=== PATIENT | female | born 1950 | race Caucasian/White ===

== ENCOUNTER 2018-01-10 07:47 | Inpatient (IN) | payer MEDICARE, OTHER ==
[~2018-01-10] VITALS: Ht 162.6 cm; Wt 75.3 kg
[2018-01-10 04:00] VITALS: BP 99/37
[2018-01-10 10:00] VITALS: BP 99/56
--- NOTE | 2018-01-10 10:00 | NUR ---
RAMAKRISHNA/RN: Pt received from [facility] via [employer]. Breathing even and unlabored, on 3L/min via NC, non-productive cough and diminished lung sounds with rhonchi noted. Pt anxious, screaming "help, help," oriented to unit, able to follow commands, bilat lower ext paralysis noted. IV HL x2 R wrist #22 and R fa #20 flushed patent, 6th bag of 1L NS bolus currently infusing. Suprapubic cath noted with foul, juan francisco urine noted, per [place] [employer] LPN Avis suprapubic cath tube and bag replaced at ER. +3 pitting edema noted lower extremities. SR c BBB in 90's on tele monitor, SBP in 90-100's, afebrile. Dr Mora paged for orders.
[2018-01-10] MEDS ORDERED: SENN1TAB77 PO (10:08)
[2018-01-10] MEDS ORDERED: ALBU2.5V38 IH (10:08)
[2018-01-10] MEDS ORDERED: CARV3.122 PO (10:08)
[2018-01-10] MEDS ORDERED: CALC-261 PO (10:08)
[2018-01-10] MEDS ORDERED: HEPA50008 SQ (10:08)
[2018-01-10] MEDS ORDERED: BACL10TA PO (10:08)
[2018-01-10] MEDS ORDERED: FLUT16SP16 BNOSTRILS (10:08)
[2018-01-10] MEDS ORDERED: MULT-447 PO (10:08)
[2018-01-10] MEDS ORDERED: CLON0.1T PO (10:08)
[2018-01-10] MEDS ORDERED: CYAN100T3 PO (10:08)
[2018-01-10] MEDS ORDERED: ALLA266C2 TP (10:08)
[2018-01-10] MEDS ORDERED: CALC-343 PO (10:08)
[2018-01-10] MEDS ORDERED: TAMO20TA4 PO (10:08)
[2018-01-10] MEDS ORDERED: BISA5TAB10 PO (10:08)
[2018-01-10] MEDS ORDERED: GUAI100S11 PO (10:08)
[2018-01-10] MEDS ORDERED: ACET-2605 PO (10:08)
[2018-01-10] MEDS ORDERED: OLOP5DRO EACHEYE (10:08)
[2018-01-10] MEDS ORDERED: ACID1TAB12 PO (10:08)
[2018-01-10] MEDS ORDERED: CHOL100044 PO (10:08)
[2018-01-10] MEDS ORDERED: FERR325T23 PO (10:08)
[2018-01-10] MEDS ORDERED: AMIN30LI4 PO (10:08)
[2018-01-10] MEDS ORDERED: ONDA4TAB5 PO (10:09)
[2018-01-10] MEDS ORDERED: TRAZ-182 PO (10:09)
[2018-01-10] MEDS ORDERED: ZINC220C8 PO (10:09)
[2018-01-10] MEDS ORDERED: TRAM50TA2 PO (10:09)
[2018-01-10] MEDS ORDERED: ASCO500T9 PO (10:09)
[2018-01-10 10:30] VITALS: BP 102/52
--- NOTE | 2018-01-10 10:30 | NUR ---
RAMAKRISHNA/RN: Received call back from Dr Mora, per MD, complete infusion of IV NS bolus from [facility]. Carried out. Completed infusion at 1025.
[2018-01-10] MEDS ORDERED: Z GUARD REMEDY 2 OZ OINT TP PRN (11:30)
[2018-01-10] MEDS ORDERED: ENOXAPARIN SODIUM 40 MG/0.4 ML DISP.SYRIN SQ SCH (11:30)
[2018-01-10] MEDS ORDERED: MAGNESIUM HYDROXIDE 30 ML UDC PO PRN (11:30)
[2018-01-10] MEDS ORDERED: MAG HYDROX/AL HYDROX/SIMETH 30 ML UDC PO PRN (11:30)
[2018-01-10] MEDS ORDERED: ONDANSETRON HCL/PF 4 MG/2 ML VIAL IVP PRN (11:30)
[2018-01-10 12:00] VITALS: BP_SYST 107; BP_DIAS 54; BP_DIAS 58
[2018-01-10] MEDS ORDERED: IV NS 0.9% 1,000 ML BAG IV ONE (12:00)
[2018-01-10] MEDS ORDERED: MEROPENEM 1 G in IV NS 0.9% 100 ML IV ONE (12:00)
[2018-01-10] MEDS: VANCOMYCIN 1 GM in IV D5W 250 ML IV ONE ×2 (12:26→12:44)
[2018-01-10] MEDS ORDERED: CLONIDINE HCL 0.1 MG TABLET PO PRN (12:30)
[2018-01-10] MEDS ORDERED: ALBUTEROL FS 2.5 MG/3 ML VIAL.NEB IH PRN (12:30)
[2018-01-10] MEDS ORDERED: MISCELLANEOUS MED 1 EA EA PO PRN (12:30)
[2018-01-10] MEDS ORDERED: BISACODYL (5 MG) 5 MG TABLET.DR PO PRN (12:30)
[2018-01-10] MEDS ORDERED: TRAMADOL HCL 50 MG TABLET PO PRN (12:30)
--- NOTE | 2018-01-10 12:30 | NUR ---
TELE/RN: Leah Baker, SECRETARY at bedside. Updated on pt status. Informed that suprapubic cath bag and tubing replaced at [place], labs discussed, home meds reviewed. Clarified 1L NS bolus - per SECRETARY, infuse additional 1L bolus, ok for pt total 7L NS.
[2018-01-10] MEDS ORDERED: FEE PK DOSING 1 MIN EA MC ONE (12:57)
[2018-01-10] MEDS ORDERED: CALCIUM CARBONATE 500 MG TAB.CHEW PO PRN (13:00)
[2018-01-10] MEDS ORDERED: IMIPENEM/CILASTATIN 500 MG in IV NS 0.9% 100 ML IV SCH (13:00)
[2018-01-10] MEDS ORDERED: IMIPENEM/CILASTATIN 250 MG in IV NS 0.9% 50 ML IV SCH (13:00)
--- NOTE | 2018-01-10 13:00 | NUR ---
TELE/RN: Son at bedside, updated. Pt able to tolerate PO meds with water. Will reassess effectiveness of pain management per protocol.
[2018-01-10 13:01] LABS: HEMATOCRIT 26 % (33-45); HEMOGLOBIN 8.7 g/dL (11.5-14.8); LYMPHOCYTES # (AUTO) 1.1 /CMM (0.8-4.8); LYMPHOCYTES % (AUTO) 2.7 % (20.0-44.0); MEAN CORPUSCULAR HGB CONC 34 g/dl (31.0-36.0); MEAN CORPUSCULAR VOLUME 93 fL (82-100); MONOCYTES # (AUTO) 1.5 /CMM (0.1-1.30); MONOCYTES % (AUTO) 3.7 % (2.0-12.0); NEUTROPHILS # (AUTO) 37.3 /CMM (1.8-8.9); NEUTROPHILS % (AUTO) 93.6 % (43.0-81.0); PLATELET COUNT (AUTO) 198 /CMM (150-450); RDW COEFFICIENT OF VARIATION 15.9 (11.5-15.0); RED BLOOD CELL COUNT(AUTO) 2.79 MIL/uL (4.0-5.2)
[2018-01-10 13:10] LABS: APPEARANCE,URINE SL CLOUDY (CLEAR); BILIRUBIN,URINE NEGATIVE (NEGATIVE); BLOOD, URINE 1+ Ery/uL (NEGATIVE); COLOR,URINE YELLOW (YELLOW); KETONES,URINE NEGATIVE (NEGATIVE); LEUKOCYTE ESTERASE ,URINE 3+ (NEGATIVE); NITRITE, URINE POSITIVE (NEGATIVE); PROTEIN,URINE 1+ mg/dl (NEGATIVE); UGLUCOSE NEGATIVE (NEGATIVE); UROBILINOGEN,URINE 0.2 EU/dL (0.2)
[2018-01-10] MEDS: BACLOFEN (10 MG) 10 MG TABLET PO SCH ×2 (13:11→17:03)
[2018-01-10] MEDS: HYDROCODONE/APAP 5/325MG 1 EACH TABLET PO PRN (13:12)
[2018-01-10 13:14] LABS: CALCIUM, SERUM 7.1 mg/dL (8.5-10.1); PHOSPHORUS 3.1 mg/dL (2.5-4.9); POTASSIUM 3.8 mmol/L (3.5-5.1); WHITE BLOOD COUNT (AUTO) 39.9 K/uL (4.3-11.0)
[2018-01-10 13:16] LABS: MAGNESIUM 1.1 mg/dL (1.8-2.4)
[2018-01-10 13:18] LABS: BACTERIA,URINE Few /HPF (None Seen); SQUAMOUS EPITHELIAL CELL,UR Few /HPF (None Seen); WBC,URINE 21-50 /HPF (0-3)
[2018-01-10 13:27] LABS: BAND % (MANUAL) 6 % (0.0-5.0); LYMPHOCYTES % (MANUAL) 3 % (16-48); MONOCYTES % (MANUAL) 5 % (0-11.0); NEUTROPHILS % (MANUAL) 86 (42-76)
[2018-01-10] MEDS: Magnesium 1GM/D5W 100ML PREMIX 100 ML IV SCH ×4 (13:31→17:03)
[2018-01-10] MEDS: OLOPATADINE HCL 0.1% OPHTH BOTTLE EACHEYE SCH (15:40)
[2018-01-10 16:00] VITALS: BP 99/37
[2018-01-10] MEDS: CARVEDILOL 3.125 MG TABLET PO SCH (17:00)
--- NOTE | 2018-01-10 17:00 | NUR ---
TELE/RN: PO meds crushed, mixed with apple sauce. Pt refuses to eat dinner aside from apple sauce. Tolerated well. Aspiration precautions in place.
[2018-01-10] MEDS: ACIDOPHILUS/BULGARICUS 1 EACH TAB.CHEW PO SCH (17:03)
[2018-01-10] MEDS: SENNOSIDES/DOCUSATE SODIUM 1 TAB TABLET PO SCH (17:04)
[2018-01-10] MEDS: FERROUS SULFATE (325 MG) 325 MG/TAB TABLET PO SCH (17:04)
[2018-01-10] MEDS: PROSOURCE / PROSTAT (PYXIS) 30 ML UDC PO SCH (17:04)
[2018-01-10] MEDS: CALCIUM CARB 250MG /VITAMIN D 1 UDTAB PO SCH (17:04)
[2018-01-10] MEDS: FLUTICASONE PROPIONATE 16 GM BOTTLE NS SCH (18:43)
--- NOTE | 2018-01-10 19:18 | NUR ---
TELE/RN: Pt awake, confused, agitated. Requires frequent reorientation. IVF infusing well. Safety measures in place. Bedside report given to pm RN for JANEE.
--- NOTE | 2018-01-10 19:20 | NUR ---
CART PUSHER INITIAL NOTE RECIEVED PATIENT RESTING COMFORTABLY WITH HOB ELEVATED. PATIENT IS ABLE TO MAKE NEEDS KNOWN, DENIES ANY CARDIAC OR RESPIRATORY DISTRESS, AOX2, NO PAIN REPORTED. TELE TACHY 104. SUPRAPUBIC F/C DRAINING SARK YELLOW URINE. RFA #20G PATENT FLUSHING WELL INFUSING NS @100CC/HR. SAFETY MAINTAINED AT ALL TIMES, BED IN LOW LOCKED POSITION, CALL LIGHT WITHIN REACH, WILL CONTINUE TO MONITOR FOR ANY CHANGES IN CONDITION.
[2018-01-10 20:00] VITALS: BP 119/55
[2018-01-10] MEDS: ACETAMINOPHEN 325 MG TABLET PO PRN (21:20)
[2018-01-10] MEDS: TRAZODONE 50 MG TABLET PO SCH (21:20)
[2018-01-10] MEDS: GUAIFENESIN 300 MG/15 ML UDC PO PRN (21:22)
--- NOTE | 2018-01-10 22:15 | NUR ---
PT PLACED ON BIPAP PER PHYSICIAN ORDER. BIPAP AT NOC. SETTINGS SET PER PT COMFORT. SETTINGS S/T 12 07/24 30%. SETTINGS TOLERATED AT THIS TIME Addendum: 01/10/18 at 2217 by SANJEEV PEREZ RT Amended: Links added.
--- NOTE | 2018-01-10 23:31 | NUR ---
per rn pt removed bipap and refusing at this time. pt placed on n/c 2l by rn Addendum: 01/11/18 at 0102 by SANJEEV PEREZ RT Amended: Links added.
[2018-01-11] VITALS: BP 135/93
[2018-01-11] MEDS: ZOLPIDEM TARTRATE 5 MG TABLET PO PRN (00:06)
[2018-01-11] MEDS: HYDROCODONE/APAP 5/325MG 1 EACH TABLET PO PRN (00:07)
[2018-01-11] MEDS ORDERED: MEROPENEM 500 MG VIAL IV ONE (00:50)
[2018-01-11] MEDS: MEROPENEM 500 MG in IV NS 0.9% 50 ML IV SCH ×2 (00:56→12:11)
[2018-01-11] MEDS: IV NS 0.9% 1,000 ML IV PRN ×2 (02:24→16:42)
--- NOTE | 2018-01-11 03:52 | NUR ---
HAIR STYLIST NOTES CALL FROM [facility], DR. PAZ, TO REPORT THAT BLOOD CULTURE SHOWS GRAM NEGATIVE RODS. WILL ENDORSE TO AM NURSE FOR JANEE.
[2018-01-11 04:00] VITALS: BP 108/40
[2018-01-11 06:26] LABS: HEMATOCRIT 28 % (33-45); HEMOGLOBIN 9.4 g/dL (11.5-14.8); LYMPHOCYTES # (AUTO) 0.3 /CMM (0.8-4.8); MEAN CORPUSCULAR HGB CONC 33 g/dl (31.0-36.0); MEAN CORPUSCULAR VOLUME 94 fL (82-100); MONOCYTES # (AUTO) 0.1 /CMM (0.1-1.30); MONOCYTES % (AUTO) 0.4 % (2.0-12.0); NEUTROPHILS # (AUTO) 29.9 /CMM (1.8-8.9); NEUTROPHILS % (AUTO) 98.6 % (43.0-81.0); PLATELET COUNT (AUTO) 147 /CMM (150-450); RDW COEFFICIENT OF VARIATION 15.9 (11.5-15.0)
--- NOTE | 2018-01-11 06:32 | NUR ---
GLOBAL CHIEF EXPERIENCE OFFICER CLOSING NOTE NO ACUTE CHANGES DURING SHIFT, PATIENT IS AOX2 AT BASELINE, SPEECH CLEAR, REFUSED BIPAP, ON 2L O2 VIA NC. NO PAIN NOTED, RESTING COMFORTABLY IN BED. WILL ENDORSE TO AM NURSE FOR CONTINUITY OF CARE.
[2018-01-11 06:43] LABS: WHITE BLOOD COUNT (AUTO) 30.3 K/uL (4.3-11.0)
[2018-01-11 06:45] LABS: CALCIUM, SERUM 7.6 mg/dL (8.5-10.1); CREATININE 2.1 mg/dL (0.6-1.3); MAGNESIUM 2.4 mg/dL (1.8-2.4); PHOSPHORUS 2.3 mg/dL (2.5-4.9); POTASSIUM 3.4 mmol/L (3.5-5.1)
--- NOTE | 2018-01-11 06:46 | NUR ---
ACCOUNT SUPPORT REP NOTE RECEIVED CALL FOR CRITICAL LAB WBC 30.3 TRENDING DOWN, WILL CONTINUE TO FOLLOW PROTOCOL.
[2018-01-11 08:00] VITALS: BP 111/40
[2018-01-11] MEDS ORDERED: VANCOMYCIN 0.75 GM in IV D5W 250 ML IV SCH (08:00)
--- NOTE | 2018-01-11 08:11 | NUR ---
WATER FILTRATION TECHNICIAN NOTE RECEIVED PATIENT RESTING COMFORTABLY PATIENT IS ABLE TO MAKE NEEDS KNOWN, AOX2, NO PAIN REPORTED. TELE TACHY 114. SUPRAPUBIC F/C DRAINING YELLOW URINE. RFA #20G PATENT FLUSHING WELL INFUSING NS @100CC/HR. SAFETY MAINTAINED AT ALL TIMES, BED IN LOW LOCKED POSITION, CALL LIGHT WITHIN REACH, WILL CONTINUE TO MONITOR FOR ANY CHANGES IN CONDITION.NO SOB NOTED , SAT ON 2L 100%
[2018-01-11 08:19] LABS: BAND % (MANUAL) 3 % (0.0-5.0)
[2018-01-11 08:20] LABS: LYMPHOCYTES % (MANUAL) 2 % (16-48); NEUTROPHILS % (MANUAL) 95 (42-76)
[2018-01-11] MEDS: PROSOURCE / PROSTAT (PYXIS) 30 ML UDC PO SCH ×2 (09:00→16:37)
[2018-01-11] MEDS: CYANOCOBALAMIN 100 MCG TABLET PO SCH (09:00)
[2018-01-11] MEDS: BACLOFEN (10 MG) 10 MG TABLET PO SCH ×3 (09:00→16:37)
[2018-01-11] MEDS: FERROUS SULFATE (325 MG) 325 MG/TAB TABLET PO SCH ×2 (09:00→16:37)
[2018-01-11] MEDS: MULTIVIT, IRON, MIN NO. 8, FA 1 TAB PO SCH (09:00)
[2018-01-11] MEDS: CHOLECALCIFEROL 1,000 UNIT TABLET (VIT D3) PO SCH (09:00)
[2018-01-11] MEDS: CARVEDILOL 3.125 MG TABLET PO SCH (09:00)
[2018-01-11] MEDS: CALCIUM CARB 250MG /VITAMIN D 1 UDTAB PO SCH ×2 (09:00→16:37)
[2018-01-11] MEDS: ACIDOPHILUS/BULGARICUS 1 EACH TAB.CHEW PO SCH ×2 (09:00→16:37)
[2018-01-11] MEDS: ASCORBIC ACID 500 MG TABLET PO SCH (09:00)
[2018-01-11] MEDS: ZINC SULFATE 220 MG CAPSULE PO SCH (09:00)
[2018-01-11] MEDS: SENNOSIDES/DOCUSATE SODIUM 1 TAB TABLET PO SCH ×2 (09:00→16:37)
[2018-01-11] MEDS: TAMOXIFEN CITRATE 10 MG TABLET PO SCH (09:00)
[2018-01-11] MEDS: FLUTICASONE PROPIONATE 16 GM BOTTLE NS SCH ×2 (09:58→16:37)
[2018-01-11] MEDS: OLOPATADINE HCL 0.1% OPHTH BOTTLE EACHEYE SCH (09:58)
[2018-01-11] MEDS: Z GUARD REMEDY 2 OZ OINT TP SCH (09:59)
[2018-01-11] MEDS ORDERED: POTASSIUM CHLORIDE 10 MEQ TABLET.SA PO ONE (10:00)
--- NOTE | 2018-01-11 10:00 | NUR ---
PODOPEDIATRICIAN NOTE PATIENT REFUSED ALL PO MEDS, SLEEPING BUT EASILY ABUSABLE ON IVF ORDERED, REFUSED TO HAVE BREAKFAST , VERY CONFUSED WHEN WAKE UP
[2018-01-11] MEDS: HEPARIN SODIUM, PORCINE 5000 UNITS/1 ML VIAL SQ SCH (10:02)
[2018-01-11 12:00] VITALS: BP 81/33
[2018-01-11] MEDS ORDERED: K PHOS NEUTRAL 250 MG TABLET PO ONE (12:00)
--- NOTE | 2018-01-11 12:00 | NUR ---
COMMUNICATIONS TOWER CLIMBER NOTE NOTE THAT PATIENT HAS DIFFICULTY TO SWALLOW ,WILL INFORM MD ,REFUSED LUNCH
--- NOTE | 2018-01-11 12:22 | NUR ---
FIRE CAPTAIN MARINE NOTE [id number] MAURO WITH ORDER BOLUS 1L , ALSO PER [facility] REPORT PLACED ON ,MRSA NARES ISOLATION Addendum: 01/11/18 at 1259 by HANNA HOLLAND RN BP 80/40 BOLUS 1L NS ADMINISTERED
[2018-01-11] MEDS ORDERED: IV NS 0.9% 1,000 ML IV PRN (12:30)
--- NOTE | 2018-01-11 13:00 | NUR ---
TURBINE SUBASSEMBLER NOTE DR MAURO AWARE THAT URINE OUTPUT 180 ML AT THIS TIME WITH BHARATI COLOR
--- NOTE | 2018-01-11 14:38 | NUR ---
CAR CONDITIONER NOTE BP 104/58 AFTER BOLUS WAS GIVEN ,[employer]CI MATRASS APPLIED
--- NOTE | 2018-01-11 14:55 | NUR ---
MS RN NOTE RT AT BEDSIDE BREATHING TX DONE DUE TO PATENT C\O CANT BREATH WELL ORAL SUCTION DONE BY RT ,WILL MONITOR CLOSELY
[2018-01-11 16:00] VITALS: BP 129/53
--- NOTE | 2018-01-11 16:06 | NUR ---
MS RN NOTE SPOKE WITH LOLI RN SUBEDITOR NOTIFIED THAT PATENT WITH CHEST CONGESTION NOTED , ALSO HAS DIFFICULTY TO SWALLOW AND REFUSED PO MEDS IN AM ,ORDERED SWALLOW EVAL AND CHEST X RAY WILL F\U
--- NOTE | 2018-01-11 17:22 | NUR ---
MS RN NOTE SPOKE WITH JONA BONE ELEVATOR REPAIRER ELEVATOR REPAIRER NOTIFIED CHEST XRAY RESULT NO NEW ORDER GIVEN NOTIFIED THAT ON IVF AT 100 ML PER HOUR
--- NOTE | 2018-01-11 18:11 | NUR ---
MS RN NOTE PATIENT HAS VERY POOR APPETITE ,ATE 10% OF FOOD , AT RISK FOR ASPIRATION, WILL CONT TO MONITOR CLOSELY
--- NOTE | 2018-01-11 18:39 | NUR ---
MS RN NOTE SPOKE WITH ROLANDO RN LIMEHOUSE WORKER AWARE THAT CHEST XRAT WITH SMALL LT EFFUSION, STATED THAT WILL CHECK TOMORROW NEW CHEST XRAY ALSO AWARE THAT HR 115 ON IVF NS AT 100 ML PER HOUR ,AWARE THAT URINE OUTPUT 200 AT THIS TIME , ALSO AWARE THAT PER [facility] REPORT PATIENT HAS GRAM _ STEWART ON IV ATB, NOTIFIED THAT EARLIER IN AM WAS TOO SLEEPY AND UNABLE TO TAKE PO MEDS WELL , NORCO PO WAS GIVEN LAST NIGHT
[2018-01-11 20:00] VITALS: BP 99/48
[2018-01-11] MEDS: TRAZODONE 50 MG TABLET PO SCH (21:12)
[2018-01-11] MEDS: MUPIROCIN OINT 2% 22 GM TUBE SCH (21:14)
[2018-01-12] VITALS (7 sets, daily range): BP systolic 101–154; BP diastolic 57–104
[2018-01-12] MEDS: MEROPENEM 500 MG in IV NS 0.9% 50 ML IV SCH ×2 (00:53→12:05)
[2018-01-12] MEDS: IV NS 0.9% 1,000 ML IV PRN ×2 (00:58→09:25)
[2018-01-12] MEDS: ACETAMINOPHEN 325 MG TABLET PO PRN (02:10)
[2018-01-12] MEDS: GUAIFENESIN 300 MG/15 ML UDC PO PRN (02:10)
[2018-01-12] MEDS: ZOLPIDEM TARTRATE 5 MG TABLET PO PRN (02:46)
[2018-01-12 07:00] LABS: EOSINOPHILS % (AUTO) 0.3 % (0.0-6.0); HEMATOCRIT 28 % (33-45); HEMOGLOBIN 9.4 g/dL (11.5-14.8); LYMPHOCYTES # (AUTO) 1.1 /CMM (0.8-4.8); LYMPHOCYTES % (AUTO) 3.8 % (20.0-44.0); MEAN CORPUSCULAR HGB CONC 33 g/dl (31.0-36.0); MEAN CORPUSCULAR VOLUME 93 fL (82-100); MONOCYTES # (AUTO) 0.9 /CMM (0.1-1.30); MONOCYTES % (AUTO) 2.9 % (2.0-12.0); NEUTROPHILS # (AUTO) 27.6 /CMM (1.8-8.9); PLATELET COUNT (AUTO) 120 /CMM (150-450); RDW COEFFICIENT OF VARIATION 16.5 (11.5-15.0); RED BLOOD CELL COUNT(AUTO) 3.04 MIL/uL (4.0-5.2); WHITE BLOOD COUNT (AUTO) 29.6 K/uL (4.3-11.0)
[2018-01-12 07:15] LABS: CALCIUM, SERUM 7.6 mg/dL (8.5-10.1); MAGNESIUM 2.1 mg/dL (1.8-2.4); PHOSPHORUS 2.3 mg/dL (2.5-4.9); POTASSIUM 3.4 mmol/L (3.5-5.1)
--- NOTE | 2018-01-12 07:40 | NUR ---
MS/RN OPENING NOTE PATIENT IN BED IN STABLE CONDITION. A/O X 1-2 WITH EPISODES OF CONFUSION AND FORGETFULNESS. NO SIGNS OF ACUTE DISTRESS. NO COMPLAIN OF PAIN OR DISCOMFORT. ON CONTACT ISOLATION FOR MRSA NARES. TOLERATING WELL. ALL NEEDS ATTENDED TO. CALL LIGHT WITHIN REACH. WILL CONTINUE TO MONITOR TO ENSURE SAFETY.
[2018-01-12 07:45] LABS: IRON, SERUM 7 ug/dl (50-175); TOTAL IRON BINDING CAPACITY 70 ug/dl (250-450)
--- NOTE | 2018-01-12 08:54 | NUR ---
MS/RN HEPARIN NON ADMIN HEPARIN NON ADMIN DUE TO LOW PLATELET COUNT 120L.
[2018-01-12] MEDS: HEPARIN SODIUM, PORCINE 5000 UNITS/1 ML VIAL SQ SCH (08:55)
[2018-01-12] MEDS: PROSOURCE / PROSTAT (PYXIS) 30 ML UDC PO SCH ×2 (09:13→17:00)
[2018-01-12] MEDS: Z GUARD REMEDY 2 OZ OINT TP SCH (09:13)
[2018-01-12] MEDS: SENNOSIDES/DOCUSATE SODIUM 1 TAB TABLET PO SCH ×2 (09:14→17:00)
[2018-01-12] MEDS: MUPIROCIN OINT 2% 22 GM TUBE SCH ×2 (09:14→21:15)
[2018-01-12] MEDS: MULTIVIT, IRON, MIN NO. 8, FA 1 TAB PO SCH (09:14)
[2018-01-12] MEDS: ZINC SULFATE 220 MG CAPSULE PO SCH (09:14)
[2018-01-12] MEDS: BACLOFEN (10 MG) 10 MG TABLET PO SCH ×3 (09:14→17:00)
[2018-01-12] MEDS: ACIDOPHILUS/BULGARICUS 1 EACH TAB.CHEW PO SCH ×2 (09:14→17:00)
[2018-01-12] MEDS: TAMOXIFEN CITRATE 10 MG TABLET PO SCH (09:14)
[2018-01-12] MEDS: CHOLECALCIFEROL 1,000 UNIT TABLET (VIT D3) PO SCH (09:14)
[2018-01-12] MEDS: CYANOCOBALAMIN 100 MCG TABLET PO SCH (09:15)
[2018-01-12] MEDS: FERROUS SULFATE (325 MG) 325 MG/TAB TABLET PO SCH ×2 (09:15→17:00)
[2018-01-12] MEDS: ASCORBIC ACID 500 MG TABLET PO SCH (09:15)
[2018-01-12] MEDS: CALCIUM CARB 250MG /VITAMIN D 1 UDTAB PO SCH ×2 (09:15→17:00)
[2018-01-12 09:18] LABS: BAND % (MANUAL) 7 % (0.0-5.0); LYMPHOCYTES % (MANUAL) 6 % (16-48); NEUTROPHILS % (MANUAL) 84 (42-76)
[2018-01-12 09:19] LABS: EOSINOPHILS % (MANUAL) 1 % (0-4); MONOCYTES % (MANUAL) 2 % (0-11.0)
[2018-01-12] MEDS: VANCOMYCIN 1 GM in IV D5W 250 ML IV SCH (10:40)
[2018-01-12] MEDS: FLUTICASONE PROPIONATE 16 GM BOTTLE NS SCH ×2 (10:40→17:00)
[2018-01-12] MEDS: OLOPATADINE HCL 0.1% OPHTH BOTTLE EACHEYE SCH (10:41)
[2018-01-12] MEDS ORDERED: Potassium Chloride 10 MEQ in IV D5W 50 ML IV ONE (12:00)
[2018-01-12] MEDS ORDERED: POTASSIUM CHLORIDE 10 MEQ TABLET.SA PO ONE (12:00)
--- NOTE | 2018-01-12 12:00 | NUR ---
WOUND CARE CONSULT: PT FOLLOWED BY PLASTIC SURGERY TEAM FOR WOUND/SKIN CARE. DEFER TO SURGICAL TEAM FOR WOUND TREATMENT PLAN. PT ON FIRST STEP MATTRESS. ALL SKIN PROTECTION AND PRESSURE ULCER PREVENTION MEASURES IN PLACE AND DISCUSSED WITH NURSING STAFF. CURRENT FERNANDO SCORE IS 12. MD IN AGREEMENT WITH PLAN OF CARE.
[2018-01-12] MEDS ORDERED: K PHOS NEUTRAL 250 MG TABLET PO ONE (12:30)
[2018-01-12] MEDS ORDERED: Sodium Phosphate 7.5 MMOL in IV D5W 100 ML IV ONE (13:00)
[2018-01-12] MEDS: CEFEPIME 1 GM in IV NS 0.9% 50 ML IV SCH (17:44)
--- NOTE | 2018-01-12 18:32 | NUR ---
MS/RN CLOSING NOTE PATIENT IN BED IN STABLE CONDITION. A/O X 1-2 WITH EPISODES OF CONFUSION AND FORGETFULNESS. NO SIGNS OF ACUTE DISTRESS. NO COMPLAIN OF PAIN OR DISCOMFORT. ALL NEEDS ATTENDED TO. CALL LIGHT WITHIN REACH. WILL ENDORSE TO NEXT SHIFT FOR CONTINUITY OF CARE.
[2018-01-12] MEDS ORDERED: CEFEPIME 1 GM VIAL IM SCH (21:00)
[2018-01-12] MEDS: TRAZODONE 50 MG TABLET PO SCH (21:15)
[2018-01-13] MEDS: MEROPENEM 500 MG in IV NS 0.9% 50 ML IV SCH ×2 (00:07→12:30)
[2018-01-13] MEDS: IV NS 0.9% 1,000 ML IV PRN ×2 (03:57→08:40)
[2018-01-13 04:00] VITALS: BP 124/78
--- NOTE | 2018-01-13 07:01 | NUR ---
RN NOTE PATIENT WAS TRANSFERRED TO MED SURG ROOM 203 FOR CONTINUATION OF CARE, REPORT WAS PROVIDED
--- NOTE | 2018-01-13 07:05 | NUR ---
MS RN NOTE: RECEIVED PATIENT FROM RAMAKRISHNA, NO ACUTE DISTRESS NOTED. WILL ENDORSE TO DAY NURSE TO CONTINUE WITH PLAN OF CARE.
--- NOTE | 2018-01-13 07:15 | NUR ---
MS RN NOTES PATIENT IN BED, A/O X1 WITH CONFUSION. ON 4L OXYGEN VIA NC, NO SOB. SUPRAPUBIC CATH INTACT, DRAINING TO GRAVITY, URINE CLEAR AND YELLOW, BAG OFF THE FLOOR. IVC IN LEFT HAND G22 PATENT AND INTACT, WILL INFUSE IVF NS AT 150ML/HR ORDERED. MAINTAIN FALL PRECAUTION, ON LOW AIR LOSS MATTRESS. CONTACT ISOLATION MRSA NARES OBSERVED. WILL CONT TO MONITOR.
[2018-01-13 08:00] VITALS: BP 141/59
[2018-01-13 08:02] LABS: BASOPHILS % (AUTO) 0.1 % (0.0-2.0); EOSINOPHILS % (AUTO) 0.2 % (0.0-6.0); HEMATOCRIT 29 % (33-45); HEMOGLOBIN 9.7 g/dL (11.5-14.8); LYMPHOCYTES # (AUTO) 1.1 /CMM (0.8-4.8); LYMPHOCYTES % (AUTO) 4.4 % (20.0-44.0); MEAN CORPUSCULAR HGB CONC 34 g/dl (31.0-36.0); MEAN CORPUSCULAR VOLUME 93 fL (82-100); MONOCYTES # (AUTO) 0.8 /CMM (0.1-1.30); NEUTROPHILS % (AUTO) 92.3 % (43.0-81.0); PLATELET COUNT (AUTO) 96 /CMM (150-450); RDW COEFFICIENT OF VARIATION 17.2 (11.5-15.0); RED BLOOD CELL COUNT(AUTO) 3.12 MIL/uL (4.0-5.2)
[2018-01-13 08:09] LABS: CALCIUM, SERUM 7.7 mg/dL (8.5-10.1); CREATININE 1.9 mg/dL (0.6-1.3); MAGNESIUM 1.9 mg/dL (1.8-2.4); POTASSIUM 3.4 mmol/L (3.5-5.1)
[2018-01-13] MEDS: OLOPATADINE HCL 0.1% OPHTH BOTTLE EACHEYE SCH (08:47)
[2018-01-13] MEDS: FLUTICASONE PROPIONATE 16 GM BOTTLE NS SCH ×2 (08:47→16:55)
[2018-01-13] MEDS: MUPIROCIN OINT 2% 22 GM TUBE SCH ×2 (08:48→21:27)
[2018-01-13] MEDS: ASCORBIC ACID 500 MG TABLET PO SCH (08:52)
[2018-01-13] MEDS: SENNOSIDES/DOCUSATE SODIUM 1 TAB TABLET PO SCH ×2 (08:53→17:13)
[2018-01-13] MEDS: CHOLECALCIFEROL 1,000 UNIT TABLET (VIT D3) PO SCH (08:53)
[2018-01-13] MEDS: CYANOCOBALAMIN 100 MCG TABLET PO SCH (08:53)
[2018-01-13] MEDS: TAMOXIFEN CITRATE 10 MG TABLET PO SCH (08:53)
[2018-01-13] MEDS: FERROUS SULFATE (325 MG) 325 MG/TAB TABLET PO SCH ×2 (08:53→17:13)
[2018-01-13] MEDS: ZINC SULFATE 220 MG CAPSULE PO SCH (08:53)
[2018-01-13] MEDS: CALCIUM CARB 250MG /VITAMIN D 1 UDTAB PO SCH ×2 (08:53→17:13)
[2018-01-13] MEDS: PROSOURCE / PROSTAT (PYXIS) 30 ML UDC PO SCH ×2 (08:54→17:13)
[2018-01-13] MEDS: ACIDOPHILUS/BULGARICUS 1 EACH TAB.CHEW PO SCH ×2 (08:59→17:13)
[2018-01-13] MEDS: BACLOFEN (10 MG) 10 MG TABLET PO SCH ×3 (09:00→17:47)
[2018-01-13] MEDS: MULTIVIT, IRON, MIN NO. 8, FA 1 TAB PO SCH (09:00)
[2018-01-13] MEDS: HEPARIN SODIUM, PORCINE 5000 UNITS/1 ML VIAL SQ SCH (09:36)
[2018-01-13] MEDS: Z GUARD REMEDY 2 OZ OINT TP SCH (09:37)
[2018-01-13] MEDS ORDERED: POTASSIUM CHLORIDE 10 MEQ TABLET.SA PO ONE (10:30)
[2018-01-13] MEDS: VANCOMYCIN 1 GM in IV D5W 250 ML IV SCH (10:59)
[2018-01-13 11:40] LABS: BAND % (MANUAL) 2 % (0.0-5.0); LYMPHOCYTES % (MANUAL) 5 % (16-48); NEUTROPHILS % (MANUAL) 93 (42-76)
[2018-01-13 16:00] VITALS: BP 133/61
[2018-01-13] MEDS: CEFEPIME 1 GM in IV NS 0.9% 50 ML IV SCH (16:50)
--- NOTE | 2018-01-13 18:28 | NUR ---
MS RN CLOSING NOTES PATIENT IS A/O X1 WITH CONFUSION. WEANING OXYGEN TOLERATED, CURRENTLY ON 2L OXYGEN VIA NC FROM 4L. SATING 100% ON 2L, TOLERATING WELL, NO SOB. AFEBRILE DURING THE SHIFT, DENIES PAIN. LOW POTASSIUM LEVEL TODAY, SUPPLEMENTED ORDERED. ON CONTACT ISOLATION MRSA NARES AND ESBL URINE, CONT ANTIBIOTIC ORDERED. MAINTAIN FALL PRECAUTION, ASPIRATION, AND CONTACT ISOLATION. FOR CT ABD/PELVIS WO ORDERED. WILL ENDORSE TO ONCOMING RN.
--- NOTE | 2018-01-13 19:30 | NUR ---
MS/RN OPENING NOTES PT AWAKE, ON 2L O2 VIA NC, BREATHING EVEN AND UNLABORED. NO SOB OR C/O OF PAIN AT THIS TIME. IV TO LEFT HAND PATENT AND INTACT. SUPRAPUBIC CATH IN PLACE AND DRAINING TO GRAVITY. PT FOR CT ABD/PELVIS WO CONTRAST. BED IN LOW/LOCKED POSITION WITH CALL LIGHT IN REACH. SIDE RAILSU PX2. WILL CONTINUE TO MONITOR
[2018-01-13 20:00] VITALS: BP 151/76
[2018-01-13] MEDS ORDERED: LEVOFLOXACIN 500 MG /D5W 100ML 500 MG in PREMIX 1 EA IV ONE (20:00)
[2018-01-13] MEDS: ALBUTEROL FS 2.5 MG/3 ML VIAL.NEB IH SCH (20:29)
[2018-01-13] MEDS: TRAZODONE 50 MG TABLET PO SCH (21:27)
[2018-01-14] MEDS: MEROPENEM 500 MG in IV NS 0.9% 50 ML IV SCH ×3 (00:12→23:44)
[2018-01-14] MEDS: ACETAMINOPHEN 325 MG TABLET PO PRN (00:30)
--- NOTE | 2018-01-14 00:37 | NUR ---
MS/RN NOTES PT C/O MILD RIB PAIN. ADMINISTERED PRN TYLENOL ORDERED. WILL MONITOR FOR EFFECTIVENESS
[2018-01-14] MEDS: ALBUTEROL FS 2.5 MG/3 ML VIAL.NEB IH SCH ×4 (01:25→19:53)
[2018-01-14 07:07] LABS: EOSINOPHILS % (AUTO) 1.3 % (0.0-6.0); HEMATOCRIT 28 % (33-45); HEMOGLOBIN 9.6 g/dL (11.5-14.8); LYMPHOCYTES # (AUTO) 1.5 /CMM (0.8-4.8); LYMPHOCYTES % (AUTO) 6.9 % (20.0-44.0); MEAN CORPUSCULAR HGB CONC 34 g/dl (31.0-36.0); MEAN CORPUSCULAR VOLUME 93 fL (82-100); MONOCYTES # (AUTO) 1.3 /CMM (0.1-1.30); MONOCYTES % (AUTO) 6.2 % (2.0-12.0); NEUTROPHILS # (AUTO) 18.2 /CMM (1.8-8.9); NEUTROPHILS % (AUTO) 85.6 % (43.0-81.0); PLATELET COUNT (AUTO) 87 /CMM (150-450); RDW COEFFICIENT OF VARIATION 17.2 (11.5-15.0); RED BLOOD CELL COUNT(AUTO) 3.06 MIL/uL (4.0-5.2); WHITE BLOOD COUNT (AUTO) 21.3 K/uL (4.3-11.0)
[2018-01-14 07:21] LABS: CALCIUM, SERUM 7.6 mg/dL (8.5-10.1); CREATININE 1.8 mg/dL (0.6-1.3); MAGNESIUM 1.8 mg/dL (1.8-2.4); PHOSPHORUS 2.5 mg/dL (2.5-4.9)
--- NOTE | 2018-01-14 07:50 | NUR ---
MS/RN CLOSING NOTES PT AWAKE, ON 2L O2 VIA NC, BREATHING EVEN AND UNLABORED. NO SOB OR C/O OF PAIN AT THIS TIME. IV TO LEFT HAND PATENT AND INTACT. SUPRAPUBIC CATH IN PLACE AND DRAINING TO GRAVITY. TURNED/REPOSITIONED Q2H. KEPT PT COMFORTABLE DURING SHIFT, ALL NEEDS MET. PT FOR CT ABD/PELVIS WO CONTRAST THIS AM. BED IN LOW/LOCKED POSITION WITH CALL LIGHT IN REACH. SIDE RAILSU PX2. ENDORSED TO DAY PAYAL BONE JANEE.
[2018-01-14 08:00] VITALS: BP 136/59
--- NOTE | 2018-01-14 08:00 | NUR ---
MS RN AM NOTES PATIENT IN BED, A/O X1 WITH CONFUSION. ON 2L OXYGEN VIA NC, NO SOB. SUPRAPUBIC CATH INTACT, DRAINING TO GRAVITY, URINE CLEAR AND YELLOW, BAG OFF THE FLOOR. IVC IN LEFT HAND G22 PATENT AND INTACT, MAINTAIN FALL PRECAUTION, ON LOW AIR LOSS MATTRESS. CONTACT ISOLATION MRSA NARES OBSERVED. WILL CONT TO MONITOR.
[2018-01-14 08:28] LABS: BAND % (MANUAL) 2 % (0.0-5.0); EOSINOPHILS % (MANUAL) 1 % (0-4); LYMPHOCYTES % (MANUAL) 6 % (16-48); MONOCYTES % (MANUAL) 3 % (0-11.0); NEUTROPHILS % (MANUAL) 88 (42-76)
[2018-01-14] MEDS: HEPARIN SODIUM, PORCINE 5000 UNITS/1 ML VIAL SQ SCH (09:00)
[2018-01-14] MEDS: ACIDOPHILUS/BULGARICUS 1 EACH TAB.CHEW PO SCH ×2 (10:16→17:40)
[2018-01-14] MEDS: CYANOCOBALAMIN 100 MCG TABLET PO SCH (10:17)
[2018-01-14] MEDS: CHOLECALCIFEROL 1,000 UNIT TABLET (VIT D3) PO SCH (10:17)
[2018-01-14] MEDS: CALCIUM CARB 250MG /VITAMIN D 1 UDTAB PO SCH ×2 (10:17→17:40)
[2018-01-14] MEDS: ZINC SULFATE 220 MG CAPSULE PO SCH (10:17)
[2018-01-14] MEDS: TAMOXIFEN CITRATE 10 MG TABLET PO SCH (10:17)
[2018-01-14] MEDS: MULTIVIT, IRON, MIN NO. 8, FA 1 TAB PO SCH (10:18)
[2018-01-14] MEDS: SENNOSIDES/DOCUSATE SODIUM 1 TAB TABLET PO SCH ×2 (10:18→17:40)
[2018-01-14] MEDS: ASCORBIC ACID 500 MG TABLET PO SCH (10:18)
[2018-01-14] MEDS: FERROUS SULFATE (325 MG) 325 MG/TAB TABLET PO SCH ×2 (10:18→17:40)
[2018-01-14] MEDS: BACLOFEN (10 MG) 10 MG TABLET PO SCH ×3 (10:18→17:40)
[2018-01-14] MEDS: Z GUARD REMEDY 2 OZ OINT TP SCH (10:21)
[2018-01-14] MEDS: POTASSIUM CHLORIDE 20 MEQ TAB.PRT.SR PO SCH ×2 (10:23→11:00)
[2018-01-14] MEDS: FLUTICASONE PROPIONATE 16 GM BOTTLE NS SCH ×2 (10:29→17:40)
[2018-01-14] MEDS: MUPIROCIN OINT 2% 22 GM TUBE SCH ×2 (10:29→21:07)
[2018-01-14] MEDS: OLOPATADINE HCL 0.1% OPHTH BOTTLE EACHEYE SCH (10:30)
[2018-01-14] MEDS: VANCOMYCIN 1 GM in IV D5W 250 ML IV SCH (10:32)
[2018-01-14] MEDS: PROSOURCE / PROSTAT (PYXIS) 30 ML UDC PO SCH ×2 (10:32→17:41)
--- NOTE | 2018-01-14 10:40 | NUR ---
HELD HEPARIN PLATELET IS TRENDING DOWN NOW IS 87
--- NOTE | 2018-01-14 12:36 | NUR ---
TRIED TO PULL OUT THE KDUR 20 MEQ PO EARLIER AND IT SAYS IT WAS 2 MINS EARLY AND NOW THE KDUR 20 MEQ GOT PULLED OUT OF THE OMNICELL SCREEN AND UNABLE TO GET IT.NOTIFIED CESAR,PHARMACIST AND MADE AWARE.WILL ADMINISTER KDUR 20 MEQ PO ONCE AVAILABLE.
[2018-01-14] MEDS ORDERED: POTASSIUM CHLORIDE 20 MEQ TAB.PRT.SR PO SCH (13:00)
[2018-01-14 16:19] VITALS: BP 130/53
--- NOTE | 2018-01-14 19:30 | NUR ---
MS RN NOTES RECEIVED ON BED A/O X1-2,CONFUSED.ISOLATION PRECAUTION FOR MRSA NARES AND ESBL URINE.ON [employer]CI MATTRESS FOR SKIN MANAGEMENT.SALINE LOCK RIGHT HAND INTACT AND PATENT,WITH SUPRA PUBIC CATHETER DRAINING YELLOWISH OUTPUT.NOTED +3 EDEMA ON BILATERAL FOOT.CALL LIGHT IN REACH,NEEDS ANTICIPATED.
--- NOTE | 2018-01-14 19:33 | NUR ---
PT RESTING IN BED DENYING ANY PAIN OR DISTRESS.PT REFUSED DINNER BUT DRINKS A LOT OF FLUIDS WITH ASSIST.CONTINUED TO BE ON CONTACT ISOLATION FOR MRSA NARES.CALL LIGHT WITHIN REACH.
[2018-01-14 19:49] VITALS: BP 155/77
--- NOTE | 2018-01-14 20:00 | NUR ---
MS RN NOTES DUE LEVAQUIN IV HUNG AND INFUSED.
[2018-01-14] MEDS: LEVOFLOXACIN 250 MG /D5W 50 ML 250 MG in PREMIX 1 EA IV SCH (20:04)
[2018-01-14 20:26] VITALS: BP 155/77
[2018-01-14] MEDS: TRAZODONE 50 MG TABLET PO SCH (21:39)
--- NOTE | 2018-01-14 23:00 | NUR ---
MS RN NOTES AWAKE,KEEPS ON SAYING SHE'S HOT.ELECTRIC FAN PROVIDED.
[2018-01-15] MEDS: ALBUTEROL FS 2.5 MG/3 ML VIAL.NEB IH SCH ×4 (01:30→20:21)
--- NOTE | 2018-01-15 02:00 | NUR ---
MS RN NOTES AWAKE SAYING ITS COLD.WARM BLANKET PROVIDED PROVIDED.
--- NOTE | 2018-01-15 06:44 | NUR ---
MS RN NOTES STILL SCREAMING,SAYING HOT AND COLD.SLEPT WITH INTERVALS.REPOSITION PER PROTOCOL.CALL LIGHT IN REACH,NEEDS ATTENDED.WILL ENDORSE TO DAY NURSE FOR JANEE.
[2018-01-15 08:00] VITALS: BP 126/53
--- NOTE | 2018-01-15 08:00 | NUR ---
MS RN AM NOTES PATIENT IN BED, A/O X1 WITH CONFUSION. ON 2L OXYGEN VIA NC, NO SOB. SUPRAPUBIC CATH INTACT, DRAINING TO GRAVITY, URINE CLEAR AND YELLOW,ATE 50% BREAKFAST.IVC IN LEFT HAND G22 PATENT AND INTACT, MAINTAIN FALL PRECAUTION, ON LOW AIR LOSS MATTRESS. CONTACT ISOLATION FOR MRSA NARES AND ESBL URINE OBSERVED. WILL CONT TO MONITOR.
--- NOTE | 2018-01-15 08:00 | NUR ---
MS RN AM NOTES PATIENT IN BED, A/O X1 WITH CONFUSION. ON 2L OXYGEN VIA NC, WITH WHEEZING NOTED.BUT PT KEEPS REMOVING HER O2 CANNULA OFTEN AND DESATURATES TO 78% WITHOUT O2-THAT WE HAVE TO REMIND HER OFTEN OF O2'S IMPORTANCE.RECEIVED HER BREATHING TX.SUPRAPUBIC CATH INTACT, DRAINING TO GRAVITY, URINE CLEAR AND YELLOW, BAG OFF THE FLOOR. IVC IN LEFT HAND G22 PATENT AND INTACT, MAINTAIN FALL PRECAUTION, ON LOW AIR LOSS MATTRESS. CONTACT ISOLATION MRSA NARES OBSERVED. WILL CONT TO MONITOR. Addendum: 01/15/18 at 0930 by SHELLY FINK RN PLS IGNORE ABOVE NOTES.DOCUMENTED ON THE WRONG PT.
[2018-01-15] MEDS: ACIDOPHILUS/BULGARICUS 1 EACH TAB.CHEW PO SCH ×2 (08:25→17:23)
[2018-01-15] MEDS: SENNOSIDES/DOCUSATE SODIUM 1 TAB TABLET PO SCH ×2 (08:25→17:24)
[2018-01-15] MEDS: ZINC SULFATE 220 MG CAPSULE PO SCH (08:26)
[2018-01-15] MEDS: MULTIVIT, IRON, MIN NO. 8, FA 1 TAB PO SCH (08:26)
[2018-01-15] MEDS: BACLOFEN (10 MG) 10 MG TABLET PO SCH ×3 (08:26→17:24)
[2018-01-15] MEDS: CALCIUM CARB 250MG /VITAMIN D 1 UDTAB PO SCH ×2 (08:26→17:24)
[2018-01-15] MEDS: CYANOCOBALAMIN 100 MCG TABLET PO SCH (08:26)
[2018-01-15] MEDS: FERROUS SULFATE (325 MG) 325 MG/TAB TABLET PO SCH ×2 (08:26→17:24)
[2018-01-15] MEDS: CHOLECALCIFEROL 1,000 UNIT TABLET (VIT D3) PO SCH (08:26)
[2018-01-15] MEDS: ASCORBIC ACID 500 MG TABLET PO SCH (08:27)
[2018-01-15] MEDS: FLUTICASONE PROPIONATE 16 GM BOTTLE NS SCH ×2 (08:27→17:35)
[2018-01-15] MEDS: OLOPATADINE HCL 0.1% OPHTH BOTTLE EACHEYE SCH (08:27)
[2018-01-15] MEDS: Z GUARD REMEDY 2 OZ OINT TP SCH (08:27)
[2018-01-15] MEDS: TAMOXIFEN CITRATE 10 MG TABLET PO SCH (08:27)
[2018-01-15] MEDS: MUPIROCIN OINT 2% 22 GM TUBE SCH ×2 (08:30→20:52)
[2018-01-15 08:32] LABS: CREATININE 1.7 mg/dL (0.6-1.3); MAGNESIUM 1.7 mg/dL (1.8-2.4); PHOSPHORUS 2.9 mg/dL (2.5-4.9)
[2018-01-15] MEDS: HEPARIN SODIUM, PORCINE 5000 UNITS/1 ML VIAL SQ SCH (08:34)
--- NOTE | 2018-01-15 08:34 | NUR ---
HELD HEPARIN BECAUSE PT'S PLATELETS IS TRENDING DOWN 87.HX OF ANEMIA.
[2018-01-15 08:43] LABS: POTASSIUM 3.4 mmol/L (3.5-5.1)
[2018-01-15 08:48] LABS: BASOPHILS % (AUTO) 0.1 % (0.0-2.0); EOSINOPHILS % (AUTO) 0.5 % (0.0-6.0); HEMATOCRIT 29 % (33-45); LYMPHOCYTES # (AUTO) 1.4 /CMM (0.8-4.8); LYMPHOCYTES % (AUTO) 8.5 % (20.0-44.0); MEAN CORPUSCULAR HGB CONC 34 g/dl (31.0-36.0); MEAN CORPUSCULAR VOLUME 91 fL (82-100); MONOCYTES # (AUTO) 1.2 /CMM (0.1-1.30); MONOCYTES % (AUTO) 7.2 % (2.0-12.0); NEUTROPHILS % (AUTO) 83.7 % (43.0-81.0); PLATELET COUNT (AUTO) 100 /CMM (150-450); RDW COEFFICIENT OF VARIATION 16.9 (11.5-15.0); RED BLOOD CELL COUNT(AUTO) 3.23 MIL/uL (4.0-5.2); WHITE BLOOD COUNT (AUTO) 16.7 K/uL (4.3-11.0)
[2018-01-15] MEDS: PROSOURCE / PROSTAT (PYXIS) 30 ML UDC PO SCH ×2 (08:50→17:23)
[2018-01-15] MEDS ORDERED: POTASSIUM CHLORIDE 10 MEQ TABLET.SA PO ONE (10:00)
[2018-01-15 10:02] LABS: BAND % (MANUAL) 2 % (0.0-5.0); EOSINOPHILS % (MANUAL) 1 % (0-4); LYMPHOCYTES % (MANUAL) 7 % (16-48); MONOCYTES % (MANUAL) 4 % (0-11.0); NEUTROPHILS % (MANUAL) 86 (42-76)
[2018-01-15] MEDS: VANCOMYCIN 1 GM in IV D5W 250 ML IV SCH (10:13)
[2018-01-15] MEDS ORDERED: Magnesium 1GM/D5W 100ML PREMIX 100 ML IV SCH (11:20)
[2018-01-15] MEDS: MEROPENEM 500 MG in IV NS 0.9% 50 ML IV SCH (12:53)
[2018-01-15 16:13] VITALS: BP 125/83
--- NOTE | 2018-01-15 19:19 | NUR ---
PT RESTING COMFORTABLY IN BED CONTINUALLY AND REPETITIVELY ASKING WHY IS SHE HERE.REORIENTATION GIVEN OFTEN.CONTINUE TO OBSERVE CONTACT ISOLATION PRECAUTIONS FOR MRSA NARES AND ESBL URINE.PT DENIES ANY PAIN OR DISTRESS.CALL LIGHT PLACED WITHIN REACH.
--- NOTE | 2018-01-15 19:30 | NUR ---
MS RN NOTES RECEIVED ON BED ON HIGH FOWLERS POSITION,O2 IN USED AT 2L/NC,O2 SAT 100%.SALINE LOCK LEFT HAND INTACT AND PATENT.WITH SUPRA PUBIC CATH IN PLACE DRAINING YELLOWISH OUTPUT.ISOLATION PRECAUTION FOR MRSA NARES AND ESBL URINE.ON [employer]CI MATTRESS FOR SKIN MANAGEMENT,REPOSITION Q 2 HOURS PER PROTOCOL.CALL LIGHT IN REACH,NEEDS ANTICIPATED.
[2018-01-15] MEDS: LEVOFLOXACIN 250 MG /D5W 50 ML 250 MG in PREMIX 1 EA IV SCH (19:37)
[2018-01-15 20:00] VITALS: BP 153/69
[2018-01-15] MEDS: TRAZODONE 50 MG TABLET PO SCH (22:08)
[2018-01-16] MEDS: ALBUTEROL FS 2.5 MG/3 ML VIAL.NEB IH SCH ×4 (00:57→20:40)
[2018-01-16] MEDS: MEROPENEM 500 MG in IV NS 0.9% 50 ML IV SCH ×2 (01:23→12:56)
[2018-01-16 06:34] LABS: BASOPHILS % (AUTO) 0.1 % (0.0-2.0); EOSINOPHILS % (AUTO) 0.6 % (0.0-6.0); HEMATOCRIT 29 % (33-45); HEMOGLOBIN 9.9 g/dL (11.5-14.8); LYMPHOCYTES # (AUTO) 1.4 /CMM (0.8-4.8); LYMPHOCYTES % (AUTO) 9.6 % (20.0-44.0); MEAN CORPUSCULAR HGB CONC 34 g/dl (31.0-36.0); MEAN CORPUSCULAR VOLUME 91 fL (82-100); MONOCYTES # (AUTO) 1.2 /CMM (0.1-1.30); NEUTROPHILS # (AUTO) 11.8 /CMM (1.8-8.9); NEUTROPHILS % (AUTO) 81.7 % (43.0-81.0); PLATELET COUNT (AUTO) 135 /CMM (150-450); RDW COEFFICIENT OF VARIATION 16.4 (11.5-15.0); RED BLOOD CELL COUNT(AUTO) 3.17 MIL/uL (4.0-5.2); WHITE BLOOD COUNT (AUTO) 14.4 K/uL (4.3-11.0)
[2018-01-16 06:39] LABS: CREATININE 1.7 mg/dL (0.6-1.3); MAGNESIUM 1.9 mg/dL (1.8-2.4); POTASSIUM 3.4 mmol/L (3.5-5.1)
--- NOTE | 2018-01-16 07:10 | NUR ---
MS RN NOTES NO SIGNIFICANT CHANGE IN STATUS.SLEPT WELL LAST NIGHT.CALL LIGHT IN REACH,NEEDS ATTENDED.ENDORSED TO MARC BONE FOR JANEE.
--- NOTE | 2018-01-16 07:25 | NUR ---
MS RN OPENING NOTES RECEIVED PATIENT AWAKE IN BED IN NO ACUTE SIGNS OF DISTRESS. HOB ELEVATED. A/O X1 WITH NO C/O PAIN OR DISCOMFORTS AT THIS TIME. ON O2 VIA N/C @ 2LPM, BREATHING EVEN AND UNLABORED. CONTACT ISOLATION MAINTAINED FOR MRSA OF NARES AND ESBL URINE. IV ACCESS ON LEFT HAND INTACT AND PATENT, FLUSHED EASILY. SUPRA PUBIC CATHETER IN PLACE AND ACTIVELY DRAINING CLEAR YELLOW URINE TO URINE BAG AT BEDSIDE. BED IN LOW AND LOCKED POSITION WITH SIDE-RAIL UP X2 CALL LIGHT IN REACH. WILL CONTINUE TO MONITOR PT ACCORDINGLY.
[2018-01-16 08:00] VITALS: BP 128/56
[2018-01-16] MEDS: TAMOXIFEN CITRATE 10 MG TABLET PO SCH (08:41)
[2018-01-16] MEDS: FERROUS SULFATE (325 MG) 325 MG/TAB TABLET PO SCH ×2 (08:42→16:59)
[2018-01-16] MEDS: ASCORBIC ACID 500 MG TABLET PO SCH (08:42)
[2018-01-16] MEDS: ACIDOPHILUS/BULGARICUS 1 EACH TAB.CHEW PO SCH ×2 (08:42→16:59)
[2018-01-16] MEDS: CHOLECALCIFEROL 1,000 UNIT TABLET (VIT D3) PO SCH (08:42)
[2018-01-16] MEDS: BACLOFEN (10 MG) 10 MG TABLET PO SCH ×3 (08:42→16:59)
[2018-01-16] MEDS: SENNOSIDES/DOCUSATE SODIUM 1 TAB TABLET PO SCH ×2 (08:42→16:59)
[2018-01-16] MEDS: PROSOURCE / PROSTAT (PYXIS) 30 ML UDC PO SCH ×2 (08:43→17:00)
[2018-01-16] MEDS: ZINC SULFATE 220 MG CAPSULE PO SCH (08:43)
[2018-01-16] MEDS: CALCIUM CARB 250MG /VITAMIN D 1 UDTAB PO SCH ×2 (08:43→16:59)
[2018-01-16] MEDS: CYANOCOBALAMIN 100 MCG TABLET PO SCH (08:43)
[2018-01-16] MEDS: FLUTICASONE PROPIONATE 16 GM BOTTLE NS SCH ×2 (08:44→17:00)
[2018-01-16] MEDS: Z GUARD REMEDY 2 OZ OINT TP SCH (08:44)
[2018-01-16] MEDS: OLOPATADINE HCL 0.1% OPHTH BOTTLE EACHEYE SCH (08:45)
[2018-01-16] MEDS: MUPIROCIN OINT 2% 22 GM TUBE SCH ×2 (08:45→23:20)
[2018-01-16] MEDS: HEPARIN SODIUM, PORCINE 5000 UNITS/1 ML VIAL SQ SCH (08:56)
[2018-01-16] MEDS: MULTIVIT, IRON, MIN NO. 8, FA 1 TAB PO SCH (09:02)
--- NOTE | 2018-01-16 09:15 | NUR ---
RN NOTES PT NOTED WITH REDNESS 9DISCOLORATION) ON HER LEFT BUTTOCK MEASURING 4CM X 1CM AND WAS FOUND BY SCROLL SAW OPERATOR WHILE CHANGING HER DIAPER. PHOTO WAS TAKEN AND FILED ON CHART. WILL CONTINUE TO MONITOR.
[2018-01-16] MEDS: VANCOMYCIN 1 GM in IV D5W 250 ML IV SCH (10:00)
--- NOTE | 2018-01-16 11:11 | NUR ---
RN NOTES PATIENT NOTED WITH HIGH VANCO TROUGH LEVEL OF 33, VANCOMYCIN IV SCHEDULE FOR 1000 NOT GIVEN.
--- NOTE | 2018-01-16 11:30 | NUR ---
RN NOTES CALLED AND FOLLOWED-UP PHARMACY FOR PT'S K CHLORIDE IV AND SAID THAT THEY'LL SEND IT UP NOW.
[2018-01-16] MEDS: POTASSIUM CL. PREMIX PERIPHER. 50 ML IV SCH ×4 (11:57→15:24)
[2018-01-16 15:49] VITALS: BP 114/61
--- NOTE | 2018-01-16 18:37 | NUR ---
MS RN CLOSING NOTES PATIENT IN BED AWAKE AND RESTING AT SEMI-LEARY'S POSITION. A/O X1, VERBALLY RESPONSIVE BUT CONFUSED. ON O2 VIA N/C @ 2LPM, TOLERATING WELL WITH NO ACUTE RESPIRATORY DISTRESS NOTED. CONTACT ISOLATION MAINTAINED FOR MRSA OF NARES AND ESBL URINE. IV ACCESS ON LEFT HAND INTACT AND PATENT, EASILY FLUSHED WITH NS. SUPRAPUBIC CATHETER IN PLACE AND ACTIVELY DRAINING CLEAR YELLOW URINE TO URINARY BAG AT BEDSIDE. HOB KEPT [id number]. MAINTAINED BED IN LOW AND LOCKED POSITION WITH SIDE-RAIL UP X2. CALL LIGHT IN REACH. PT TURNED AND REPOSITIONED FROM SIDE TO SIDE Q2HRS AND PRN. ALL REQUIRED NURSING CARE RENDERED AND MAINTAINED. WILL ENDORSED TO SHELLFISH GROWER NURSE FOR JANEE.
--- NOTE | 2018-01-16 19:30 | NUR ---
MS2/RN RECEIVE PATIENT AWAKE, ALERT, ORIENTED X2 WITH CONFUSION, COMFORTABLE, NO DISTRESS NOTED,CALL LIGHT IN REACH. WILL MONITOR.
[2018-01-16 20:00] VITALS: BP 144/63
[2018-01-16] MEDS: LEVOFLOXACIN 250 MG /D5W 50 ML 250 MG in PREMIX 1 EA IV SCH (20:43)
[2018-01-16] MEDS: TRAZODONE 50 MG TABLET PO SCH (23:21)
--- NOTE | 2018-01-17 | NUR ---
MS2/RN IV NOT PATENT, MACHINE KEEPS ON BEEPING. REMOVED IV ATTEMPTED TO INSERT IV X 1 BUT UNSUCCESSFUL, PATIENT IS HARD STICK. CALLED CHAR KIRKLAND RN IN 3 WEST TO INSERT IV, SHE CAME, AND SUCCESSFULLY INSERTED IV AT RT WRIST G 22 AND RT. HAND G 24.
[2018-01-17] MEDS: MEROPENEM 500 MG in IV NS 0.9% 50 ML IV SCH ×2 (00:45→11:05)
--- NOTE | 2018-01-17 01:39 | NUR ---
MS2/RN PATIENT IS SLEEPING AT THIS TIME, EASILY AROUSABLE, APPEAR, COMFORTABLE, NO DISTRESS NOTED, CALL LIGHT IN REACH. WILL CONTINUE TO MONITOR.
[2018-01-17] MEDS: ALBUTEROL FS 2.5 MG/3 ML VIAL.NEB IH SCH ×4 (02:01→19:42)
[2018-01-17 06:37] LABS: EOSINOPHILS % (AUTO) 0.7 % (0.0-6.0); HEMATOCRIT 27 % (33-45); HEMOGLOBIN 9.1 g/dL (11.5-14.8); LYMPHOCYTES # (AUTO) 1.4 /CMM (0.8-4.8); LYMPHOCYTES % (AUTO) 9.2 % (20.0-44.0); MEAN CORPUSCULAR HGB CONC 34 g/dl (31.0-36.0); MEAN CORPUSCULAR VOLUME 90 fL (82-100); MONOCYTES % (AUTO) 6.4 % (2.0-12.0); NEUTROPHILS # (AUTO) 13.1 /CMM (1.8-8.9); NEUTROPHILS % (AUTO) 83.7 % (43.0-81.0); PLATELET COUNT (AUTO) 178 /CMM (150-450); RDW COEFFICIENT OF VARIATION 16.8 (11.5-15.0); RED BLOOD CELL COUNT(AUTO) 2.96 MIL/uL (4.0-5.2); WHITE BLOOD COUNT (AUTO) 15.6 K/uL (4.3-11.0)
[2018-01-17 06:49] LABS: CALCIUM, SERUM 7.4 mg/dL (8.5-10.1); CREATININE 1.6 mg/dL (0.6-1.3); MAGNESIUM 1.9 mg/dL (1.8-2.4); PHOSPHORUS 3.2 mg/dL (2.5-4.9); POTASSIUM 3.9 mmol/L (3.5-5.1)
--- NOTE | 2018-01-17 06:53 | NUR ---
MS2/RN PATIENT IS SLEEPING, COMFORTABLE, NO SIGNS OF DISTRESS NOTED, CALL LIGHT WITHIN REACH. ALL NEEDS ATTENDED AT THIS TIME. WILL MONITOR.
--- NOTE | 2018-01-17 07:15 | NUR ---
MS RN OPENING NOTES PATIENT RECEIVED AWAKE IN BED IN NO ACUTE SIGNS OF DISTRESS. HOB ELEVATED. A/O X1. CONFUSED AND VERBALLY RESPONSIVE. ON O2 VIA N/C @ 2LPM, BREATHING EVEN AND UNLABORED. CONTACT PRECAUTIONS MAINTAINED FOR MRSA OF NARES AND ESBL URINE. IV ACCESS ON RIGHT HAND INTACT AND PATENT, FLUSHES EASILY. SUPRA PUBIC CATHETER IN PLACE AND ACTIVELY DRAINING CLEAR YELLOW URINE TO URINARY BAG AT BEDSIDE. HOB ELEVATED. BED IN LOW AND LOCKED POSITION WITH SIDE-RAIL UP X2 CALL LIGHT IN REACH. WILL CONTINUE TO MONITOR PT ACCORDINGLY.
[2018-01-17] MEDS: FERROUS SULFATE (325 MG) 325 MG/TAB TABLET PO SCH ×2 (08:19→17:09)
[2018-01-17] MEDS: CHOLECALCIFEROL 1,000 UNIT TABLET (VIT D3) PO SCH (08:19)
[2018-01-17] MEDS: SENNOSIDES/DOCUSATE SODIUM 1 TAB TABLET PO SCH ×2 (08:19→17:09)
[2018-01-17] MEDS: ASCORBIC ACID 500 MG TABLET PO SCH (08:19)
[2018-01-17] MEDS: ZINC SULFATE 220 MG CAPSULE PO SCH (08:19)
[2018-01-17] MEDS: CALCIUM CARB 250MG /VITAMIN D 1 UDTAB PO SCH ×2 (08:19→17:09)
[2018-01-17] MEDS: CYANOCOBALAMIN 100 MCG TABLET PO SCH (08:19)
[2018-01-17] MEDS: TAMOXIFEN CITRATE 10 MG TABLET PO SCH (08:19)
[2018-01-17] MEDS: BACLOFEN (10 MG) 10 MG TABLET PO SCH ×3 (08:19→17:09)
[2018-01-17] MEDS: MULTIVIT, IRON, MIN NO. 8, FA 1 TAB PO SCH (08:19)
[2018-01-17] MEDS: MUPIROCIN OINT 2% 22 GM TUBE SCH ×2 (08:20→20:53)
[2018-01-17] MEDS: OLOPATADINE HCL 0.1% OPHTH BOTTLE EACHEYE SCH (08:20)
[2018-01-17] MEDS: FLUTICASONE PROPIONATE 16 GM BOTTLE NS SCH ×2 (08:20→17:10)
[2018-01-17] MEDS: PROSOURCE / PROSTAT (PYXIS) 30 ML UDC PO SCH ×2 (08:21→17:10)
[2018-01-17] MEDS: Z GUARD REMEDY 2 OZ OINT TP SCH (08:21)
[2018-01-17] MEDS: ACIDOPHILUS/BULGARICUS 1 EACH TAB.CHEW PO SCH ×2 (08:23→17:09)
[2018-01-17] MEDS: HEPARIN SODIUM, PORCINE 5000 UNITS/1 ML VIAL SQ SCH (08:24)
[2018-01-17 08:30] VITALS: BP 154/72
[2018-01-17] MEDS: VANCOMYCIN 1 GM in IV D5W 250 ML IV SCH (10:00)
--- NOTE | 2018-01-17 10:14 | NUR ---
RN NOTES ABX VANCO IV NOT GIVEN SCHEDULE FOR 1000. VANCO TROUGH LEVEL IS HIGH 29. WILL CONTINUE TO MONITOR
[2018-01-17] MEDS ORDERED: FUROSEMIDE 20 MG/2 ML VIAL IV ONE (14:00)
[2018-01-17 15:49] VITALS: BP 136/96
--- NOTE | 2018-01-17 18:55 | NUR ---
MS RN CLOSING NOTES PATIENT COMFORTABLY RESTING AT MODERATE HIGH BACKREST IN BED. A/O X1-2, CONFUSED AND VERBALLY RESPONSIVE. PT MAINTAINED SUPPLEMENTAL ON O2 VIA N/C @ 2LPM, TOLERATING WELL WITH NO SOB NOTED. CONTACT PRECAUTIONS MAINTAINED FOR MRSA OF NARES AND ESBL URINE. 2 IV LINES ON RIGHT HAND AND RIGHT WRIST INTACT AND PATENT, SL LOCK ONLY. SUPRA PUBIC CATHETER IN PLACE AND ACTIVELY DRAINING CLEAR YELLOW URINE TO URINARY BAG AT BEDSIDE. HOB ELEVATED. BED IN LOW AND LOCKED POSITION WITH SIDE-RAIL UP X2 CALL LIGHT IN REACH. ALL NEEDS AND CARE PROVIDED WELL. WILL ENDORSED TO GAMBLING DEALER NURSE FOR JANEE.
--- NOTE | 2018-01-17 19:40 | NUR ---
MS RN NOTES RECEIVED ON BED WITH HOB ELEVATED,BREATHING NON LABORED,DIMINISHED BREATH SOUND ON AUSCULTATION.SALINE LOCK BOTH ARMS INTACT AND PATENT,ON [employer]CI MATTRESS FOR SKIN MANAGEMENT,WITH SUPRA PUBIC CATH DRAINING YELLOWISH OUTPUT.ISOLATION PRECAUTION FOR MRSA NARES AND ESBL URINE.WILL CONTINUE TO MONITOR STATUS.
[2018-01-17 20:00] VITALS: BP 134/58
[2018-01-17] MEDS: TRAZODONE 50 MG TABLET PO SCH (21:51)
--- NOTE | 2018-01-18 | NUR ---
MS RN NOTES DUE MERREM IV HUNG SCHEDULED.
[2018-01-18] MEDS: MEROPENEM 500 MG in IV NS 0.9% 50 ML IV SCH ×2 (00:02→12:13)
[2018-01-18] MEDS: ALBUTEROL FS 2.5 MG/3 ML VIAL.NEB IH SCH ×3 (01:28→13:36)
--- NOTE | 2018-01-18 05:00 | NUR ---
MS RN NOTES MORNING CARE RENDERED,TOLERATED WELL.REPOSITION TO COMFORT
[2018-01-18 06:15] LABS: BASOPHILS % (AUTO) 0.1 % (0.0-2.0); EOSINOPHILS % (AUTO) 0.7 % (0.0-6.0); HEMATOCRIT 27 % (33-45); HEMOGLOBIN 9.3 g/dL (11.5-14.8); LYMPHOCYTES # (AUTO) 1.7 /CMM (0.8-4.8); LYMPHOCYTES % (AUTO) 11.4 % (20.0-44.0); MEAN CORPUSCULAR HGB CONC 34 g/dl (31.0-36.0); MEAN CORPUSCULAR VOLUME 91 fL (82-100); MONOCYTES # (AUTO) 0.9 /CMM (0.1-1.30); MONOCYTES % (AUTO) 6.2 % (2.0-12.0); NEUTROPHILS # (AUTO) 12.1 /CMM (1.8-8.9); NEUTROPHILS % (AUTO) 81.6 % (43.0-81.0); PLATELET COUNT (AUTO) 222 /CMM (150-450); RDW COEFFICIENT OF VARIATION 16.6 (11.5-15.0); RED BLOOD CELL COUNT(AUTO) 3.03 MIL/uL (4.0-5.2); WHITE BLOOD COUNT (AUTO) 14.9 K/uL (4.3-11.0)
[2018-01-18 06:25] LABS: CALCIUM, SERUM 8.1 mg/dL (8.5-10.1); CREATININE 1.7 mg/dL (0.6-1.3); MAGNESIUM 1.8 mg/dL (1.8-2.4); PHOSPHORUS 3.6 mg/dL (2.5-4.9); POTASSIUM 3.6 mmol/L (3.5-5.1)
--- NOTE | 2018-01-18 07:49 | NUR ---
MS RN OPENING NOTE PATIENT IS ALERT AND ORIENTED X1-2. CONFUSED, NEEDS REORIENTATION. NO FACIAL GRIMACING NOTED FOR PAIN. NO SOB OR DISTRESS NOTED. ON 2L/MIN OF OXYGEN VIA NASAL CANNULA. CALL LIGHT WITHIN REACH. SAFETY MEASURES IMPLEMENTED. ON CONTACT ISOLATION PRECAUTIONS FOR MRSA NARES AND ESBL URINE. HAS SUPRA PUBIC CATHETER IN PLACE, TO DRAIN NEEDED. IV INTACT AND PATENT NO REDNESS OR SWELLING NOTED ABLE TO COMMUNICATE NEEDS. WILL CONTINUE TO MONITOR THROUGHOUT SHIFT
[2018-01-18 08:00] VITALS: BP 134/61
[2018-01-18] MEDS: ASCORBIC ACID 500 MG TABLET PO SCH (09:04)
[2018-01-18] MEDS: BACLOFEN (10 MG) 10 MG TABLET PO SCH ×2 (09:04→12:13)
[2018-01-18] MEDS: TAMOXIFEN CITRATE 10 MG TABLET PO SCH (09:04)
[2018-01-18] MEDS: CYANOCOBALAMIN 100 MCG TABLET PO SCH (09:04)
[2018-01-18] MEDS: ACIDOPHILUS/BULGARICUS 1 EACH TAB.CHEW PO SCH (09:04)
[2018-01-18] MEDS: ZINC SULFATE 220 MG CAPSULE PO SCH (09:05)
[2018-01-18] MEDS: FERROUS SULFATE (325 MG) 325 MG/TAB TABLET PO SCH (09:05)
[2018-01-18] MEDS: MULTIVIT, IRON, MIN NO. 8, FA 1 TAB PO SCH (09:05)
[2018-01-18] MEDS: CALCIUM CARB 250MG /VITAMIN D 1 UDTAB PO SCH (09:05)
[2018-01-18] MEDS: Z GUARD REMEDY 2 OZ OINT TP SCH (09:05)
[2018-01-18] MEDS: PROSOURCE / PROSTAT (PYXIS) 30 ML UDC PO SCH (09:05)
[2018-01-18] MEDS: SENNOSIDES/DOCUSATE SODIUM 1 TAB TABLET PO SCH (09:05)
[2018-01-18] MEDS: CHOLECALCIFEROL 1,000 UNIT TABLET (VIT D3) PO SCH (09:05)
[2018-01-18] MEDS: FLUTICASONE PROPIONATE 16 GM BOTTLE NS SCH (09:07)
[2018-01-18] MEDS: MUPIROCIN OINT 2% 22 GM TUBE SCH (09:07)
[2018-01-18] MEDS: OLOPATADINE HCL 0.1% OPHTH BOTTLE EACHEYE SCH (09:07)
[2018-01-18] MEDS ORDERED: MERO500V IV (10:23)
[2018-01-18] MEDS ORDERED: VANC750F2 IV (10:23)
--- NOTE | 2018-01-18 14:00 | NUR ---
SCHOOL EXAMINER NOTE PATIENT IS ALERT AND ORIENTED X2. NO FACIAL GRIMACING NOTED FOR PAIN. NO SOB OR DISTRESS NOTED. CALL LIGHT WITHIN REACH AT ALL TIMES. SAFETY MEASURES IMPLEMENTED. ABLE TO COMMUNICATE NEEDS. PATIENT REFUSED WOUND PICTURES, PATIENT STATED " I JUST WANT TO LEAVE, LET ME LEAVE". IV GOING WITH PATIENT DUE TO IV ANTIBIOTICS AT [facility]. ALL DUE MEDICATIONS GIVEN ORDERED. ALL NURSING CARE NEEDS ATTENDED TO NEEDED. SUPRAPUBIC CATHETER IN PLACE AND EMPTIED, 400 ML OUTPUT. ON 2L/MIN OF OXYGEN VIA NASAL CANNULA. NO BELONGINGS WITH PATIENT. GAVE ALL DISCHARGE INSTRUCTIONS TO JAZMINE AT [facility], RN CUSTOMER SERVICE CONSULTANT. ALL INSTRUCTIONS REPEATED BACK FROM RN. LEFT VIA AMBULANCE
[2018-01-19] MEDS ORDERED: VANCOMYCIN 0.75 GM in IV D5W 250 ML IV SCH (09:00)
[2018-01-20 14:14] LABS: CALCITRIOL VIT D,1, 25 DIHYDRO 13.2 pg/mL (19.9-79.3)
== END 2018-01-18 14:00 | DRG 871 ==
LOC: TELE-TD 09:32 → TELE1 12:10 → MEDSG1 01-11 09:34 → MEDSG2 01-13 06:31
PROVIDERS: ADMIT Nurse Practitioner Acute Care; ATTEND Nurse Practitioner Acute Care
PROC: 5A09357 Assistance with Respiratory Ventilation, Less than 24 Consecutive Hours, Continuous Positive Airway Pressure (ICD-10-PCS; principal; 2018-01-10)
DX: A41.9 Sepsis, unspecified organism (principal); R65.21 Severe sepsis with septic shock; J96.01 Acute respiratory failure with hypoxia; J69.0 Pneumonitis due to inhalation of food and vomit; G93.41 Metabolic encephalopathy; N17.9 Acute kidney failure, unspecified; J15.6 Pneumonia due to other Gram-negative bacteria; R53.2 Functional quadriplegia; N39.0 Urinary tract infection, site not specified; E87.1 Hypo-osmolality and hyponatremia; N13.30 Unspecified hydronephrosis; E46 Unspecified protein-calorie malnutrition; E86.9 Volume depletion, unspecified; D63.8 Anemia in other chronic diseases classified elsewhere; E83.42 Hypomagnesemia; Z86.73 Personal history of transient ischemic attack (TIA), and cerebral infarction without residual deficits; Z86.718 Personal history of other venous thrombosis and embolism; Z86.711 Personal history of pulmonary embolism; Z93.59 Other cystostomy status; N31.9 Neuromuscular dysfunction of bladder, unspecified; L98.9 Disorder of the skin and subcutaneous tissue, unspecified; I10 Essential (primary) hypertension; Z22.322 Carrier or suspected carrier of Methicillin resistant Staphylococcus aureus; G35 Multiple sclerosis; G47.33 Obstructive sleep apnea (adult) (pediatric); E83.39 Other disorders of phosphorus metabolism; E87.6 Hypokalemia; Z79.01 Long term (current) use of anticoagulants; Z79.899 Other long term (current) drug therapy; E66.01 Morbid (severe) obesity due to excess calories; Z68.28 Body mass index [BMI] 28.0-28.9, adult
CPT/HCPCS: 31720; 36415; 70450-TC; 71045-TC; 76770-TC; 80048-TC; 80061-TC; 80202-TC; 81000-TC; 82306; 82652; 83540-TC; 83735-TC; 83970; 84100-TC; 85025-TC; 87040-TC; 87081-TC; 87086-TC; 87186-TC; 92521; 92526; 92611-TC; 94799-TC; A4216; A4606; A9563; J0692; J0743; J1644; J1940; J1956; J2185; J3370; J3475; J3480; J7030; J7050; J7060; J7070; Z7610